=== PATIENT | female | born 1955 | race Caucasian/White ===

== ENCOUNTER 2021-06-26 07:29 | Day surgery (SDC) | payer OTHER ==
[2021-06-26] MEDS: Polymyxin B/Trimethoprim 10 ML Bottle EYERT SCH ×3 (07:15→08:40)
[2021-06-26] MEDS: Brimonidine 0.2% Ophth Soln 5 ML Bottle EYERT SCH ×3 (07:18→08:40)
[2021-06-26] MEDS: Phenylephrine 2.5% Ophth Soln 2 ML Bot EYERT SCH ×4 (07:22→07:48)
[2021-06-26] MEDS: Tropicamide 1% Ophth Soln 15 ML Bottle EYERT SCH ×4 (07:25→07:52)
[~2021-06-26 07:29] MED LIST: Cefuroxime 10 MG/ML SYRINGE EYERT SCH; Lidocaine 1% PF 2 ML SDV INJECT SCH; Pilocarpine 4% Ophth Soln 15 ML Bot EYERT SCH
[2021-06-26] MEDS: Tetracaine HCl/PF 0.5% 4 ML Bottle EYEBOTH SCH ×4 (08:00→08:27)
== END 2021-06-26 08:50 | disposition home or self-care (01) ==
LOC: JD.SDS 07:29
PROVIDERS: ATTEND Ophthalmology
DX: H25.89 Other age-related cataract (principal); H43.813 Vitreous degeneration, bilateral; H43.393 Other vitreous opacities, bilateral; H35.363 Drusen (degenerative) of macula, bilateral; H35.3131 Nonexudative age-related macular degeneration, bilateral, early dry stage; H35.372 Puckering of macula, left eye; I10 Essential (primary) hypertension; H91.90 Unspecified hearing loss, unspecified ear; M19.90 Unspecified osteoarthritis, unspecified site; Z96.1 Presence of intraocular lens; Z88.4 Allergy status to anesthetic agent; Z88.1 Allergy status to other antibiotic agents; Z98.890 Other specified postprocedural states; Z79.82 Long term (current) use of aspirin; Z79.899 Other long term (current) drug therapy
CPT/HCPCS: 66984; C1780; J0697